=== PATIENT | male | born 1960 | race Caucasian/White ===

== ENCOUNTER 2022-06-24 08:38 | Observation (INO) | payer OTHER ==
[~2022-06-24] VITALS: Ht 177.8 cm; Wt 83.9 kg
[~2022-06-24 08:38] MED LIST: ALKA-SELTZER O1 EACH; ASPIRIN ENTERI325 MG PO; ATENOLOL25 MG PO; CRESTOR10 MG PO; EFFIENT10 MG PO; FLONASE16 GM; PEPCID20 MG PO; PREDNISONE20 MG PO; VASOTEC2.5 MG PO
[2022-06-24] MEDS ORDERED: SODIUM CHLORIDE 0.9% 1000ML 1,000 ML IV STA (09:02)
[2022-06-24] MEDS ORDERED: SODIUM CHLORIDE 0.9% 1000ML 1,000 ML ONE (09:08)
[2022-06-24] MEDS ORDERED: ONDANSETRON HCL INJ 2MG/ML 2ML 2 MG/ML VIAL ONE (09:08)
[2022-06-24] MEDS ORDERED: FAMOTIDINE 20 MG/2 ML VIAL IV ONE ×2 (09:08→09:15)
[2022-06-24] MEDS ORDERED: ONDANSETRON HCL INJ 2MG/ML 2ML 2 MG/ML VIAL IV ONE (09:15)
[2022-06-24] MEDS ORDERED: IOPAMIDOL 370 MG/ML 100 ML INFUS..BTL INJ ONE (09:36)
[2022-06-24] MEDS ORDERED: DIPHENHYDRAMINE HCL INJ 50 MG/ML VIAL IV PRN (10:45)
[2022-06-24] MEDS ORDERED: ENALAPRILAT IV INJ 1.25 MG/ML VIAL IV PRN (10:45)
[2022-06-24] MEDS ORDERED: ONDANSETRON HCL INJ 2MG/ML 2ML 2 MG/ML VIAL IV PRN (10:45)
[2022-06-24] MEDS ORDERED: Morphine 4mg INJECTION 4 MG/ML INJ IV PRN (10:45)
[2022-06-24 12:36] VITALS: BP 128/89
[2022-06-24 12:37] VITALS: BP 128/89
[2022-06-24 12:47] VITALS: BP 128/89
[2022-06-24] MEDS: D5.45%NS/KCL 20MEQ 1,000 ML IV SCH ×2 (13:05→18:41)
[2022-06-24] MEDS ORDERED: HYDRALAZINE HCL 20 MG/ML VIAL IV PRN (13:30)
[2022-06-24] MEDS ORDERED: ACETAMINOPHEN 325 MG TAB PO PRN (13:30)
[2022-06-24] MEDS: METRONIDAZOLE 500MG/NS 100ML 100 ML IV SCH ×2 (14:46→21:20)
[2022-06-24 16:00] VITALS: BP 131/82
[2022-06-24] MEDS: FAMOTIDINE 20 MG/2 ML VIAL IV SCH (16:49)
[2022-06-24 20:00] VITALS: BP_SYST 106; BP_SYST 131; BP_DIAS 64; BP_DIAS 85
[2022-06-24] MEDS: PRASUGREL 10 MG TAB PO SCH (21:50)
[2022-06-24] MEDS: SIMVASTATIN 40 MG TAB PO SCH (21:50)
[2022-06-24] MEDS: ATENOLOL 50 MG TAB PO SCH (21:50)
[2022-06-25] VITALS (8 sets, daily range): BP systolic 101–122; BP diastolic 64–82
[2022-06-25] MEDS: D5.45%NS/KCL 20MEQ 1,000 ML IV SCH ×3 (01:00→18:45)
[2022-06-25 05:22] LABS: CHOL/HDL RATIO 4.4 (3.9-4.7); PHOSPHORUS 2.5 MG/DL (2.3-4.7)
[2022-06-25] MEDS: METRONIDAZOLE 500MG/NS 100ML 100 ML IV SCH ×3 (05:30→21:16)
[2022-06-25] MEDS ORDERED: SODIUM CHLORIDE 0.9% 100 ML ONE (05:38)
[2022-06-25 05:42] LABS: THYROID STIMULATING HORMONE 0.926 uIU/mL (0.350-4.940)
[2022-06-25 06:21] LABS: BASOPHILS # (AUTO) 0.1 (0.0-0.1); BASOPHILS % 0.5 % (0.0-1.0); EOSINOPHILS # (AUTO) 0.3 (0.0-0.4); HEMATOCRIT 44.8 % (38.2-49.6); HEMOGLOBIN 14.9 g/dL (14.0-18.0); MEAN CORPUSCULAR HEMOGLOBIN 29.7 pg (28-32); MEAN CORPUSCULAR HGB CONC 33.3 g/dL (31-35); MEAN CORPUSCULAR VOLUME 89.4 fL (81-99); MONOCYTES % 9.5 % (4.4-11.3); NEUTROPHILS # (AUTO) 7.1 (2.1-6.9); NEUTROPHILS % 67.5 % (38.7-80.0); PLATELET COUNT 201 x10e3/uL (140-360); RED BLOOD COUNT 5.01 x10e6/uL (4.3-5.7); RED CELL DISTRIBUTION WIDTH 12.9 % (11.7-14.4)
[2022-06-25 06:35] LABS: ANION GAP 15.9 mmol/L (8-16); CALCIUM 8.6 mg/dL (8.4-10.2); CREATININE, SERUM 1.23 mg/dL (0.72-1.25); POTASSIUM 3.9 mmol/L (3.5-5.1)
[2022-06-25] MEDS: ATENOLOL 50 MG TAB PO SCH ×2 (09:00→21:15)
[2022-06-25] MEDS: FLUTICASONE PROPIONATE NASAL SPRAY NS SCH (09:00)
[2022-06-25] MEDS: FAMOTIDINE 20 MG/2 ML VIAL IV SCH ×2 (09:00→21:13)
[2022-06-25] MEDS: PRASUGREL 10 MG TAB PO SCH (21:14)
[2022-06-25] MEDS: SIMVASTATIN 40 MG TAB PO SCH (21:15)
[2022-06-26] VITALS: BP 112/72
[2022-06-26 04:00] VITALS: BP 106/65
[2022-06-26] MEDS: D5.45%NS/KCL 20MEQ 1,000 ML IV SCH (05:05)
[2022-06-26] MEDS: METRONIDAZOLE 500MG/NS 100ML 100 ML IV SCH ×2 (05:06→14:13)
[2022-06-26 08:45] VITALS: BP 115/87
[2022-06-26] MEDS: FAMOTIDINE 20 MG/2 ML VIAL IV SCH (09:04)
[2022-06-26] MEDS: FLUTICASONE PROPIONATE NASAL SPRAY NS SCH (09:05)
[2022-06-26] MEDS: ATENOLOL 50 MG TAB PO SCH (09:08)
[2022-06-26 12:43] VITALS: BP 128/74
[2022-06-26] MEDS ORDERED: AUGMENTIN 500-1 EACH PO (16:08)
== END 2022-06-26 16:22 | disposition home or self-care (01) ==
LOC: FSED 08:43 → ERHOLD 10:43 → MED/SURG 12:22
PROVIDERS: ADMIT Internal Medicine; ATTEND Internal Medicine
DX: K56.600 Partial intestinal obstruction, unspecified as to cause (principal); K52.9 Noninfective gastroenteritis and colitis, unspecified; I11.9 Hypertensive heart disease without heart failure; I25.10 Atherosclerotic heart disease of native coronary artery without angina pectoris; E78.00 Pure hypercholesterolemia, unspecified; E87.20 Acidosis, unspecified; Z95.810 Presence of automatic (implantable) cardiac defibrillator; Z95.5 Presence of coronary angioplasty implant and graft; Z82.49 Family history of ischemic heart disease and other diseases of the circulatory system; Z80.0 Family history of malignant neoplasm of digestive organs; Z83.6 Family history of other diseases of the respiratory system; Z20.822 Contact with and (suspected) exposure to COVID-19
CPT/HCPCS: 36415; 74176; 80048 ×2; 80061; 80076; 81003; 82553; 83036; 83735; 84100; 84152; 84443; 84484; 85025; 93005; 94799 ×3; 96374; 96376; 99284; G0378 ×3; J1200; J2405; J2543 ×3; J7030; J7050; U0002; Q9967

== ENCOUNTER 2024-08-27 18:06 | Emergency (ER) | payer OTHER ==
[~2024-08-27] VITALS: Ht 177.8 cm; Wt 83.9 kg
[~2024-08-27 18:06] MED LIST changes: +AUGMENTIN 500-1 EACH PO
[2024-08-27 19:30] VITALS: PULSE 71; RESP 18; TEMP 98.8; O2SAT 98
== END 2024-08-27 19:30 | disposition home or self-care (01) ==
LOC: FSED 18:32
DX: R50.9 Fever, unspecified (principal); U07.1 COVID-19; R51.9 Headache, unspecified; I10 Essential (primary) hypertension; E78.5 Hyperlipidemia, unspecified; E78.00 Pure hypercholesterolemia, unspecified; I25.2 Old myocardial infarction; Z95.810 Presence of automatic (implantable) cardiac defibrillator
CPT/HCPCS: 0223U; 83518; 87400; 99284